=== PATIENT | female | born 1955 | race Caucasian/White ===

== ENCOUNTER → 2019-11-12 | Outpatient (CLI) | payer OTHER ==
[~2019-11-12] VITALS: Ht 162.6 cm; Wt 69.4 kg
[~2019-11-12] MED LIST: MAGNESIUM250 M1 PO; NEURONTIN 300M300 M2 PO; SINGULAIR 10 MG10 M1; SUPER B-50 COM1 EACH PO; SYNTHROID75 MCG PO
[2019-11-12 13:39] VITALS: BP 110/73
--- NOTE | 2019-11-12 14:11 | NUR ---
Pain Clinic Assessment: 1. History of Osteoarthritis: DENIES History of Rheumatoid Arthritis: DENIES 2. Height: 5 ft. 4 in. 162.6 cm. Weight: 153.0 lb. oz. 69.400 kg. Patient's BMI: 26.2 3. Vital Signs: BP: 110/73 Pulse: 98 Resp: 16 Temp: 02 Sat: 100 ECG Mon: 4. Pain Intensity: 7 5. Fall Risk: Dizziness: Y Needs help standing or walking: N Fallen in the last 3 months: N Fall risk comments: 6. Patient on Blood Thinner: None 7. History of Hypertension: N 8. Opioid Therapy greater than 6 weeks: N Opiate Contract Signed: 9. Risk Assessment Tool Provided: 10. Functional Assessment Tool: 11. Recreational Drug Use: Never Drug Type: Tobacco Use: Never Smoker Tobacco Type: Amount or Packs/day: How Many Years: Alcohol Use: Past use Frequency: Special Occasions Quant: NONE CURRENTLY
--- NOTE | 2019-11-25 10:06 | HPC ---
[facility] [address] [place] [address] PAIN MANAGEMENT CONSULTATION Name: ELENA NAVAS Room #: REG CHINA Janeen.#: [id number] Admission: 11/12/19 Attend Phys: Regino Reyes DO Discharge: Date of : 53 Report #: [id number] THIS REPORT FOR: //name// CC: Baltazar Reyes DATE OF SERVICE: 11/12/2019 CHIEF COMPLAINT: Neck pain, right upper extremity pain with paresthesias. HISTORY OF PRESENT ILLNESS: As you know, the patient is a 64-year-old female who reports a longstanding history of neck pain, right upper extremity pain with paresthesias. She states she had an exacerbation of symptoms on 09/10/2019. Denies any specific injury or trauma. The patient has been suffering from chronic neck pain, believed to be due to arthritic changes for years, but she began experiencing numbness and tingling radiating down the right arm, which prompted evaluation by her primary care physician. She was subsequently sent for evaluation with Orthopedics who advised the patient that options for treatment are limited and she was subsequently referred to our clinic. The patient indicates pain is continuous with intermittent exacerbations. She describes the pain as burning, shooting, cramping, aching, sharp, stabbing, numbness, tingling when describing symptoms. Places current pain score 7/10, daily average at 8/10, worst pain has been as 10/10. She has been referred to our service to discuss treatment options for suspected cervical radiculopathy. PAST MEDICAL HISTORY: 1. Hypothyroidism. 2. Seasonal allergies. PAST SURGICAL HISTORY: Thyroidectomy. SOCIAL HISTORY: The patient denies tobacco, alcohol, IV or illicit drug use. She is a retired teacher, retired years ago. She is not receiving workmen's compensation nor is she trying to obtain disability benefits. She is unaccompanied today. REVIEW OF SYSTEMS: Positive for fatigue and weakness, rash and itching, numbness and tingling sensations, lightheadedness and dizziness, nervousness, depression, insomnia, thyroid disease. All other review of systems negative per 12-point review of systems other than those listed in history of present illness. Pain impact score of 50/70 indicating severe interference of daily activities secondary to pain. [address] [address] PAIN MANAGEMENT CONSULTATION Name: ELENA NAVAS Room #: REG Randy Kwon#: [id number] Admission: 11/12/19 Attend Phys: Regino Reyes DO Discharge: Date of : 53 Report #: [id number] ALLERGIES: No known drug allergies. CURRENT MEDICATIONS: Gabapentin 300 mg b.i.d., vitamin B complex 1 tab per day, magnesium 250 mg per day, levothyroxine 75 mcg per day, Montelukast sodium 10 mg per day. IMAGING: MRI cervical spine obtained on 10/28/2019 shows C2-C3 unremarkable, C3-C4 shows disk osteophyte complex, uncovertebral hypertrophy, minimal neural foraminal narrowing. No significant central canal stenosis. C4-C5 disk osteophyte complex, mild to moderate neural foraminal narrowing on the right, minimal central canal stenosis. C5-C6 uncovertebral hypertrophy, disk osteophyte complex, mild bilateral neural foraminal narrowing, minimal spinal canal stenosis. C6-C7 uncovertebral hypertrophy, minimal bilateral neural foraminal narrowing, no significant central canal stenosis. C7-T1 unremarkable. PQRS: The patient has no known rheumatoid arthritis, but does suffer from arthritic changes of the cervical spine and lumbar spine. She is placing pain intensity today at 7/10, not a fall risk, has not had a fall in last 3 months. She is not on blood thinners nor she is treated for hypertension. She is not on chronic opioids and has a low opioid addiction potential. Pain impact score 50/70, severe interference of daily activities secondary to pain. PHYSICAL EXAMINATION: VITAL SIGNS: Blood pressure 110/73, pulse is 98, respiratory rate 16 and unlabored. The patient is 100% on room air. Height 5 feet 4 inches tall, weight 153.0 pounds, BMI calculated 26.2. GENERAL: Well-developed, well-nourished, well-hydrated 64-year-old female appearing stated age, pain is rated around 7/10. HEENT: Normocephalic, atraumatic. Pupils equal, round, reactive to light. Extraocular muscles are intact. NEUROLOGIC: Speech is fluent. LUNGS: Clear, no wheeze, rhonchi or rales. CARDIOVASCULAR: Regular. No appreciable gallop, no rub. ABDOMEN: Soft, nontender, nondistended, normoactive bowel sounds. EXTREMITIES: Show no clubbing, no cyanosis, no edema. MUSCULOSKELETAL: Upper extremity strength equal and symmetrical 5/5, intact to light touch from C5 through T1 dermatomes. Deep tendon reflexes are symmetrical when comparing left upper extremity to right. Spurling's test is equivocal. There does appear to be decreased tactile sensation along the C5 dermatome on the right when compared to left. ASSESSMENT: 1. Cervical radiculopathy. 2. Cervical spondylosis with radiculopathy. 3. Neural foraminal stenosis, cervical spine. [facility] [address] [place] [address] PAIN MANAGEMENT CONSULTATION Name: ELENA NAVAS Room #: REG [facility]#: [id number] Admission: 11/12/19 Attend Phys: Regino Reyes DO Discharge: Date of : 53 Report #: [id number] 4. Intractable pain. PLAN: 1. The patient has been referred to our service by her orthopedic surgeon, Dr. Prateek Lyon for evaluation for suspected cervical radiculopathy. Given the findings on physical exam, the history she provides, the description she uses in regards to pain, the likely source of the patient's symptoms is cervical radicular in origin. It does appear to be related to the C5 dermatome distribution, which does correlate to the moderate neural foraminal stenosis on the right side noted in imaging. We discussed with the patient the treatment options for cervical radiculopathy, following was discussed with the patient today. We discussed physical therapy, stretching exercise, core strengthening as a treatment course. We discussed medication management, escalating the dose of her neuropathic pain medication as well as adjusting for anti-inflammatory therapy. We discussed cervical epidural injections under fluoroscopic guidance, for which the patient was referred to our clinic. We also discussed surgical options after reviewing risks and benefits of all the proposed treatment options, the patient chose to undergo a cervical epidural injection. 2. The patient was advised risks and benefits of a cervical epidural injection. These risks include but are not necessarily limited to bleeding, bruising, infection, worsening pain, no relief of pain, also risk of temporary or permanent muscle weakness, temporary or permanent nerve damage, possible paralysis, post-dural puncture headache and . The patient states understood and wished to proceed. 3. No medication changes made at today's visit. The patient will continue current medical therapy as prior prescribed. 4. We will see the patient back in followup visit on an as needed basis for possible next in the series of epidural injections. We did set the patient to have a tentative appointment for 12/03/2019 if she wishes to undergo next in the series of cervical epidural injections. 5. We wish to thank Dr. Lyon for the referral of the patient to our clinic. We will keep you apprised of response to treatment as we address cervical radiculopathy. Again, we wish to thank you for the opportunity to see this patient in consultation. PROCEDURE NOTE PROCEDURE: C7-T1 cervical epidural steroid injection under fluoroscopic guidance. This is the first procedure of the first series that the patient is undergoing. After obtaining written consent, the patient was taken back to the fluoroscopy suite and placed in a prone position with [place] [address] PAIN MANAGEMENT CONSULTATION Name: ELENA NAVAS Room #: REG [facility]#: [id number] Admission: 11/12/19 Attend Phys: Regino Reyes DO Discharge: Date of : 53 Report #: [id number] forward to decrease cervical lordosis. The skin overlying the cervical area was prepped and draped in an aseptic fashion. The C7-T1 vertebral interspace was identified by AP fluoroscopy. The skin and subcutaneous tissue overlying the target site of injection was anesthetized using 3 mL of 1% lidocaine. A 20-gauge 3-1/2 inch Tuohy needle was advanced under fluoroscopic guidance toward the epidural space using a midline approach. The epidural space was identified using a loss of resistance to air technique. After negative aspiration for heme or cerebrospinal fluid, a total of 1 mL of Omnipaque was injected. A cervical epidurogram was confirmed using AP and oblique fluoroscopy. After negative aspiration for heme or cerebrospinal fluid, 5 mL of a solution containing 2 mL 40 mg/mL 80 mg total triamcinolone, 3 mL of lidocaine 1% was injected in increments. Contrast spread was noted from posterior epidural space. The needle was then retracted approximately assisted and the needle track was flushed with 1 mL of 1% lidocaine. There were no apparent new sensory deficits in the upper extremities present following the procedure. A sterile bandage was placed over the injection site. The heart rate, pulse oximetry and blood pressure were continuously monitored after the procedure. There were no apparent complications. The patient tolerated the procedure well and was carefully escorted in the recovery room in stable condition. After meeting discharge criteria, the patient was discharged home. <ELECTRONICALLY SIGNED> By: Regino Reyes DO 11/25/19 1006 [id number] Regino Reyes DO /nt
== END | disposition home or self-care (01) ==
LOC: PAIN 12:40
DX: M47.22 Other spondylosis with radiculopathy, cervical region (principal); M54.2 Cervicalgia; G89.29 Other chronic pain; I10 Essential (primary) hypertension; E03.9 Hypothyroidism, unspecified; F32.9 Major depressive disorder, single episode, unspecified; E07.9 Disorder of thyroid, unspecified; G47.00 Insomnia, unspecified; M48.02 Spinal stenosis, cervical region; Z98.890 Other specified postprocedural states; Z79.899 Other long term (current) drug therapy

== ENCOUNTER → 2019-12-03 | Outpatient (CLI) | payer OTHER ==
[~2019-12-03] VITALS: Ht 162.6 cm; Wt 72.5 kg
[2019-12-03 11:04] VITALS: BP 126/73
--- NOTE | 2019-12-03 11:34 | NUR ---
Pain Clinic Assessment: 1. History of Osteoarthritis: DENIES History of Rheumatoid Arthritis: DENIES 2. Height: 5 ft. 4 in. 162.6 cm. Weight: 159.8 lb. oz. 72.485 kg. Patient's BMI: 27.4 3. Vital Signs: BP: 126/73 Pulse: 88 Resp: 16 Temp: 02 Sat: 100 ECG Mon: 4. Pain Intensity: 8 5. Fall Risk: Dizziness: N Needs help standing or walking: N Fallen in the last 3 months: N Fall risk comments: 6. Patient on Blood Thinner: None 7. History of Hypertension: N 8. Opioid Therapy greater than 6 weeks: N Opiate Contract Signed: 9. Risk Assessment Tool Provided: 10. Functional Assessment Tool: 50 11. Recreational Drug Use: Never Drug Type: Tobacco Use: Never Smoker Tobacco Type: Amount or Packs/day: How Many Years: Alcohol Use: Past use Frequency: Quant:
--- NOTE | 2019-12-10 08:39 | HPC ---
[facility] [address] [place] [address] PAIN MANAGEMENT CONSULTATION Name: ELENA NAVAS Room #: REG CHINA Janeen.#: [id number] Admission: 12/03/19 Attend Phys: Regino Reyes DO Discharge: Date of : 53 Report #: [id number] THIS REPORT FOR: //name// CC: Baltazar Paniagua DATE OF SERVICE: 12/03/2019 REFERRING PHYSICIAN: Dr Baltazar Singh. CHIEF COMPLAINT: Neck pain, right upper extremity pain with paresthesias. HISTORY OF PRESENT ILLNESS: As you know, the patient is a 64-year-old female with a longstanding history of neck pain, right upper extremity pain with paresthesias. The patient was seen in consultation per the request of the referring physician on 11/12/2019, where she underwent a cervical epidural injection under fluoroscopic guidance to address cervical radicular symptoms. We have had complete resolution of her neck pain and proximal right upper extremity pain. The patient continues to experience pain generated from the right wrist into the hand. She has swelling of the right hand and continues to experience paresthesias, classic for carpal tunnel syndrome. The patient reportedly had an EMG done at [facility], which shows consistency of findings that would correlate to carpal tunnel syndrome. The patient was referred to our clinic to trial a cervical epidural injection to determine the amount of paresthesias that may be related to the cervical region. As indicated above, the patient did receive good benefit with neck pain and right proximal upper extremity symptoms, but continues to experience the carpal tunnel syndrome. She returns today to discuss options for treatment. ALLERGIES: No known drug allergies. CURRENT MEDICATIONS: Gabapentin 300 mg twice a day, vitamin B complex 1 tab per day, magnesium 250 mg once a day, levothyroxine 75 mcg per day, montelukast sodium 10 mg per day. SOCIAL HISTORY: The patient denies tobacco, alcohol, IV or illicit drug use. 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 IMAGING: No new imaging available. PQRS: The patient has arthritic changes of the cervical spine and lumbar spine. No rheumatoid arthritis. She is placing her pain intensity today involving just the right upper extremity, from the wrist to the hand and proximal from the wrist approximately 7 cm at 8/10. She is not a fall risk, [place] [address] PAIN MANAGEMENT CONSULTATION Name: ELENA NAVAS Room #: REG CLI Cher#: [id number] Admission: 12/03/19 Attend Phys: Regino Reyes DO Discharge: Date of : 53 Report #: [id number] last 3 months. She is not on blood thinners, nor is she treated for hypertension. She is not on chronic opioids, has a low addiction potential to opioid medications. Functional pain impact score 50/70, indicating severe interference in daily activities secondary to pain. PHYSICAL EXAMINATION: VITAL SIGNS: Blood pressure 126/73, pulse 88, respiratory rate 16 and unlabored. The patient is 100% on room air. Height 5 feet 4 inches tall, weighs 159.8 pounds, BMI calculated 27.4. GENERAL: Well-developed, well-nourished, well-hydrated 64-year-old female, appearing stated age. Pain is rated today at 8/10. HEENT: Normocephalic, atraumatic. Pupils are equal, round, reactive to light. Speech is fluent. EXTREMITIES: Show no clubbing, no cyanosis. MUSCULOSKELETAL: The patient does have positive Tinel's sign on the right, positive Phalen's on the right. There is noted swelling of the right hand in a generalized fashion. There are no changes in skin color, nor texture. Nail growth is normal, hair growth is normal when comparing the left upper extremity to the right. Spurling's test is now equivocal. 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 ASSESSMENT: 1. Carpal tunnel syndrome of the right upper extremity. 2. Cervical radiculopathy. 3. Cervical spondylosis with radicular symptoms. 4. Chronic intractable pain. PLAN: 1. The patient returns today in followup visit, having complete resolution of neck pain and proximal right upper extremity symptoms that were related to her cervical radiculopathy. I believe the patient continues to experience pain in the proximal portion of the right upper extremity due to progressively worsening carpal tunnel syndrome. The patient reports that she had an EMG done at [facility] in [place], but we have been unable to obtain this study. We have contacted the performing physician and we have yet to receive the information back. The reports from other physicians provided as part of the patient's referral indicates EMG positive for carpal tunnel on the right, and I do feel that the residual symptoms she is experiencing are related to this issue. The patient has requested assistance in gaining treatment for her carpal tunnel syndrome. 2. The patient and I did discuss carpal tunnel syndrome in its entirety, and its treatment course. The patient has requested a referral to see Orthopedics for release of the flexor retinaculum to reduce the compressive forces causing neuropraxia of the right upper extremity. We have provided this referral to the patient. She will follow up with Orthopedics as quickly as possible to discuss carpal tunnel release. I have advised the patient to obtain the EMG results, if [facility] [address] [place] [address] PAIN MANAGEMENT CONSULTATION Name: ELENA NAVAS Room #: REG [facility] Janeen.#: [id number] Admission: 12/03/19 Attend Phys: Regino Reyes DO Discharge: Date of : 53 Report #: [id number] she could possibly do so, as we have been unable to do so to date. She will make efforts to obtain this study as it is part of her medical record, and she is able to gain this information without issue. She is to take this information with her to her orthopedic consultation. 3. No medication changes made at today's visit. We did discuss the possibility of adjusting the patient's neuropathic medication, but at this time she wishes "a resolution to her symptoms." Carpal tunnel release is the way to treat her right upper extremity symptoms that remain. Certainly, if she has recurrence of cervical radiculopathy, we will see her back to undergo cervical epidural injection. 4. I am pleased to see the patient saw and reports improvement in her neck and proximal right upper extremity symptoms that are related to her cervical radiculopathy. 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 She will follow up with Orthopedics in regards to this issue. We will certainly be available to see the patient back in followup visit for a cervical epidural injection if her cervical radicular symptoms recur. <ELECTRONICALLY SIGNED> By: Regino Reyes DO 12/10/19 [id number] Regino Reyes DO /nt
== END ==
LOC: PAIN 06:56
DX: G56.01 Carpal tunnel syndrome, right upper limb (principal); M47.22 Other spondylosis with radiculopathy, cervical region; G89.29 Other chronic pain; Z79.899 Other long term (current) drug therapy